=== PATIENT | female | born 1985 | race Caucasian/White ===

== ENCOUNTER → 2019-09-05 11:03 | Outpatient (CLI) | payer OTHER, SELFPAY ==
--- NOTE | ~2019-09-05 | XR_ITS ---
EXAMINATION: XR foot LT 2V EXAM DATE: 09/05/2019 11:27 INDICATION: No known recent injury provided at this time. Pain of the left foot. TECHNIQUE: Frontal and lateral projections of the left foot.. There is no prior study for compariso n. Correlation was made with contralateral foot same date. FINDINGS: There are no bony erosions identified. No periosteal reaction or band of sclerosis to sugg est subacute stress fracture. There are no acute left foot fractures or dislocations identified. The re is no subcutaneous gas. The soft tissue is unremarkable. There are no radiopaque foreign bodies . IMPRESSION: 1. Unremarkable XR foot LT 2V exam. Reviewed, dictated and finalized at location A. DER MACHINE KNIFE SETTER
--- NOTE | ~2019-09-05 | XR_ITS ---
EXAMINATION: XR foot RT 2V EXAM DATE: 09/05/2019 11:26 INDICATION: No known recent injury provided at this time. Pain of the right foot. TECHNIQUE: Frontal and lateral projections of the right foot. Correlation is made to contralateral f oot same date. FINDINGS: There is minimal right first metatarsophalangeal joint primary osteoarthritis. There are no acute fractures or dislocations identified. There is no subcutaneous gas. The soft tissue is unrem arkable. There are no radiopaque foreign bodies. There are no bony erosions identified. No periost eal reaction or band of sclerosis to suggest subacute stress fracture. IMPRESSION: Minimal right first MTP osteoarthritis. Reviewed, dictated and finalized at location A. OR COMPLIANCE ANALYST
--- NOTE | ~2019-09-05 | XR_ITS ---
EXAMINATION: XR hand RT 2V EXAM DATE: 09/05/2019 11:26 INDICATION: No known recent injury provided at this time. Pain of the right hand. Polyarthralgia. TECHNIQUE: Frontal and lateral projections of the right hand. Correlation is made to contralateral h and same date. FINDINGS: There are no bony erosions identified. There are no acute fractures or dislocations identi fied. There is no subcutaneous gas. The soft tissue is unremarkable. There are no radiopaque fore ign bodies. There is no more than minimal polyarticular interphalangeal osteoarthritis primary osteo arthritis. IMPRESSION: Minimal right hand interphalangeal osteoarthritis. Reviewed, dictated and finalized at location A. [employer] SERVICES SALES REPRESENTATIVE
--- NOTE | ~2019-09-05 | XR_ITS ---
EXAMINATION: XR hand LT 2V EXAM DATE: 09/05/2019 11:27 INDICATION: No known recent injury provided at this time. Pain of the left hand. Polyarthralgia. TECHNIQUE: Frontal and lateral projections of the left hand. Correlation is made to contralateral almendarez nd same date. FINDINGS: There are no bony erosions identified. There are no acute left hand fractures or dislocati ons identified. There is no subcutaneous gas. The soft tissue is unremarkable. There are no radio paque foreign bodies. There is no more than minimal polyarticular interphalangeal primary osteoarthr itis. IMPRESSION: Minimal left hand interphalangeal osteoarthritis. Reviewed, dictated and finalized at location A. RUCTOR CREELER
== END ==
PROVIDERS: Visit Provider Physician Assistant
DX: M25.50 Pain in unspecified joint (principal)
CPT/HCPCS: 73120; 73620

== ENCOUNTER → 2019-09-25 07:51 | Outpatient (CLI) | payer OTHER, SELFPAY ==
--- NOTE | ~2019-09-25 | XR_ITS ---
EXAMINATION: XR chest 2V DATE: 09/25/2019 08:06 INDICATION: Tuberculosis screening. Smoker. TECHNIQUE: Frontal and lateral views of the chest were obtained. COMPARISON: Chest 2 views 06/23/2008 FINDINGS: The chest demonstrates clear lungs without pneumonia, pleural effusion, or pneumothorax. Th e heart size is normal. IMPRESSION: 1. No acute cardiopulmonary disease. Reviewed, dictated and finalized at location A. WASHER BUSSER
== END ==
PROVIDERS: PCP Physician Assistant; Visit Provider Physician Assistant
DX: Z11.1 Encounter for screening for respiratory tuberculosis (principal)
CPT/HCPCS: 71046

== ENCOUNTER 2019-11-04 09:41 | Outpatient (CLI) | payer OTHER, SELFPAY ==
--- NOTE | 2019-11-04 10:30 | NEURO_ITS ---
Patient Number: [id number] Impression: # Complains of numbness of hands and feet. History of psoriasis arthritis. # Normal motor and sensory nerve conduction study. # Normal nerve conduction study. # Symptoms could be related to small fiber neuropathy Nerve Conduction Studies Anti Sensory Summary Table Stim Site NR Peak (ms) P-T Amp (?V) Site1 Site2 Delta-P (ms) Dist (cm) Eric (m/s) Left Median Anti Sensory (2-3nd Digit) Wrist 2.6 98.1 Wrist 2-3nd Digit 2.6 14.0 54 Wrist 2.6 87.0 Wrist 2-3nd Digit 2.6 14.0 54 Right Median Anti Sensory (2-3nd Digit) Wrist 2.5 80.7 Wrist 2-3nd Digit 2.5 14.0 56 Wrist 2.5 83.5 Wrist 2-3nd Digit 2.5 14.0 56 Left Radial Anti Sensory (Base 1st Digit) Wrist 1.9 35.1 Wrist Base 1st Digit 1.9 0.0 Right Radial Anti Sensory (Base 1st Digit) Wrist 2.1 31.5 Wrist Base 1st Digit 2.1 0.0 Left Sup Fibular Anti Sensory (Ant Lat Mall) 14 cm 3.3 31.5 14 cm Ant Lat Mall 3.3 16.0 48 Right Sup Fibular Anti Sensory (Ant Lat Mall) 14 cm 3.2 40.7 14 cm Ant Lat Mall 3.2 16.0 50 Left Sural Anti Sensory (Lat Mall) Calf 3.5 4.2 Calf Lat Mall 3.5 16.0 46 Right Sural Anti Sensory (Lat Mall) Calf 3.6 9.7 Calf Lat Mall 3.6 16.0 44 Left Ulnar Anti Sensory (5th Digit) Wrist 2.1 77.8 Wrist 5th Digit 2.1 14.0 67 Right Ulnar Anti Sensory (5th Digit) Wrist 2.0 72.7 Wrist 5th Digit 2.0 14.0 70 Motor Summary Table Stim Site NR Onset (ms) O-P Amp (mV) Site1 Site2 Delta-0 (ms) Dist (cm) Eric (m/s) Left Median Motor (Abd Poll Brev) Wrist 2.7 5.1 Elbow Wrist 4.3 26.0 60 Elbow 7.0 3.8 Right Median Motor (Abd Poll Brev) Wrist 2.3 11.5 Elbow Wrist 4.2 24.0 57 Elbow 6.5 4.3 Left Peroneal Motor (Vastus Med) Ankle 4.1 1.5 Popit Ankle 7.3 38.0 52 Popit 11.4 1.8 Right Peroneal Motor (Vastus Med) Ankle 3.9 2.5 Popit Ankle 5.9 35.0 59 Popit 9.8 1.9 Left Tibial Motor (Abd Gomes Brev) Ankle 3.8 11.3 Knee Ankle 6.4 40.0 63 Knee 10.2 9.4 Right Tibial Motor (Abd Goems Brev) Ankle 4.3 11.7 Knee Ankle 6.5 39.0 60 Knee 10.8 10.1 Left Ulnar Motor (Abd Dig Minimi) Wrist 2.3 6.6 A Elbow Wrist 4.4 28.0 64 A Elbow 6.7 5.1 Right Ulnar Motor (Abd Dig Minimi) Wrist 2.3 7.2 A Elbow Wrist 4.2 26.0 62 A Elbow 6.5 5.4 F Wave Studies NR F-Lat (ms) L-R F-Lat (ms) Left Median (Mrkrs) (Abd Poll Brev) 23.80 0.70 Right Median (Mrkrs) (Abd Poll Brev) 24.50 0.70 Left Peroneal (Mrkrs) (EDB) 43.74 0.94 Right Peroneal (Mrkrs) (EDB) 42.81 0.94 Left Tibial (Mrkrs) (Abd Hallucis) 42.03 1.88 Right Tibial (Mrkrs) (Abd Hallucis) 43.91 1.88 Left Ulnar (Mrkrs) (Abd Dig Min) 24.14 0.58 Right Ulnar (Mrkrs) (Abd Dig Min) 23.57 0.58 EMG Side Muscle Nerve Root Ins Act Fibs Amp Dur Recrt Comment Right 1stDorInt Ulnar C8-T1 Nml Nml Nml Nml Nml Right Ext Indicis Radial (Post Int) C7-8 Nml Nml Nml Nml Nml Right Ext Digitorum Radial (Post Int) C7-8 Nml Nml Nml Nml Nml Right BrachioRad Radial C5-6 Nml Nml Nml Nml Nml Right PronatorTeres Median C6-7 Nml Nml Nml Nml Nml Right Abd Poll Brev Median C8-T1 Nml Nml Nml Nml Nml Right AntTibialis Dp Br Fibular L4
== END 2019-11-04 09:42 | disposition home or self-care (01) ==
PROVIDERS: PCP Family Medicine; Visit Provider Family Medicine
DX: G62.9 Polyneuropathy, unspecified (principal)
CPT/HCPCS: 95886; 95913

== ENCOUNTER 2020-07-12 19:35 | Emergency (ER) | payer OTHER, SELFPAY ==
[2020-07-12 19:40] VITALS: BP 133/91; PULSE 87; RESP 17; O2SAT 100
[2020-07-12 19:48] VITALS: TEMP 37.6
[2020-07-12 20:42] VITALS: BP 116/81; PULSE 74; RESP 16; O2SAT 100
[2020-07-12 20:45] LABS: Basophils Absolute Auto 0.1 K/mm3 (0.0-0.1); Basophils Percent Auto 0.3 % (0.2-1.2); Eosinophils Absolute Auto 0.1 K/mm3 (0-0.3); Eosinophils Percent Auto 0.6 % (0-4.4); Hematocrit 39.7 % (37.0-47.0); Hemoglobin 13.5 g/dL (12.0-15.0); Immature Granulocyte Absolute 0.04 K/mm3 (0.00-0.031); Immature Granulocyte Percent A 0.3 % (0-0.5); Lymphocytes Absolute Auto 3.77 K/mm3 (0.9-3.2); Lymphocytes Percent Auto 25.8 % (18.3-44.2); Mean Corpuscular Hemoglobin 31.6 pg (26-34); Mean Platelet Volume 10.6 fl (7.4-10.4); Monocytes Absolute Auto 0.8 K/mm3 (0.1-0.6); Monocytes Percent Auto 5.2 % (2.6-8.5); Neutrophils Absolute Auto 9.9 K/mm3 (1.3-6.7); Neutrophils Percent Auto 67.8 % (45.5-73.1); Platelet Count Result 289 k/mm3 (150-375); Red Blood Count 4.27 M/mm3 (4.2-5.4); Red Cell Distribution Width 13.1 % (11.5-14.5); White Blood Count 14.6 K/mm3 (4.5-10.0)
[2020-07-12] MEDS: SODIUM CHLORIDE 0.9% IV 1,000 ML 999 ML IV CONT ×2 (20:52→22:06)
[2020-07-12 21:00] VITALS: BP 106/74; PULSE 80; RESP 16; O2SAT 99
[2020-07-12 21:00] LABS: Anion Gap 6 mmol/L (8-16); Blood Urea Nitrogen 17 mg/dL (7-17); CRP 0.7 mg/dL (<1.0); Calcium 9.3 mg/dL (8.4-10.2); Carbon Dioxide 26 mmol/L (22-30); Chloride 105 mmol/L (98-107); Estimated Glomerular Filt Rate > 60; Glucose 104 mg/dL (65-105); Potassium 4.1 mmol/L (3.4-5.0); Sodium 137 mmol/L (137-145)
[2020-07-12 22:00] VITALS: BP 111/67; PULSE 78; RESP 16; O2SAT 98
[2020-07-12] MEDS: diazePAM INJ (*CRX) 10 MG/2 ML SYRINGE 5 MG IV PUSH (22:03)
[2020-07-12] MEDS: KETOROLAC 30 MG/ML VIAL (*BKC) IV PUSH (22:03)
[2020-07-12 22:18] LABS: Add Urine Microscopic? NO; Appearance Urine Clear (Clear); Bacteria Urine Trace /hpf; Bilirubin Urine Negative (Negative); Blood Urine Negative (Negative); Color Urine Yellow (Yellow); Glucose Urine UA Negative (Negative); Ketones Urine Negative (Negative); Leukocyte Esterase Ur Negative LEU/UL (Negative); Mucus Urine Few /lpf; Nitrate Urine Negative (Negative); Protein Urine Negative (Negative); RBC Urine 0-2 /hpf (0-2); Specific Grav Ur 1.015 (1.001-1.035); Squamous Epithelial Cell Urine Few /hpf (Few); Urobilinogen Urine Negative mg/dL (<2.0); WBC Urine 0-3 /hpf
--- NOTE | 2020-07-12 22:21 | ED.HA ---
HPI - Headache General Chief Complaint: Headache Stated Complaint: meningitis symptoms (had 3x) Time Seen by Provider: 07/12/20 20:32 History of Present Illness HPI Narrative: Patient is a 35-year-old female who presents ER with a headache. Symptoms began 3 days ago. Patient woke up from sleep feeling like she had tweaked a muscle in her back. Patient's reports that she was reporting some sciatic-like symptoms but patient is denying leg pain or numbness or tingling in her legs. Patient reports backaches increased the next day and was starting to have some neck discomfort as well. Today she started having headaches. She reports that it is a dull 3/10 headache at this time. She takes Tylenol and ibuprofen as needed for headaches. She reports occasionally if she moves really fast she will get a short burst of headache. She is having no numbness or tingling or dizziness. She is without change in vision. She has an elevated temperature here but denies fevers at home. Her recently tested positive for Covid and just finished his quarantine. She has no runny nose/sore throat/productive cough. Patient reports she has history of viral meningitis. Patient has no history of IV drug abuse. Denies any recent skin infections or dental infections. She has no new rashes. No traumatic injury to the back. Related Data Home Medications Medication Instructions Recorded Confirmed adalimumab [Humira] 0 SUBCUT .COMPLEX 07/12/20 07/12/20 sertraline mg 07/12/20 07/12/20 Allergies Allergy/AdvReac Type Severity Reaction Status Date / Time No Known Allergies Allergy Unknown Verified 07/12/20 19:42 Review of Systems Review of Systems: All systems reviewed & are unremarkable except as noted in HPI and below Constitutional: Constitutional: Denies chills, Reports fatigue, Denies fever(s) and Reports weakness Eyes: Eyes: Denies change in vision and Denies photophobia ENT: Denies nasal congestion and Denies sore throat Cardiovascular: Cardiovascular: Denies chest pain and Denies radiating jaw, neck or arm pain Respiratory: Respiratory: Denies cough and Denies dyspnea Gastrointestinal: Gastrointestinal: Denies abdominal pain, Denies nausea and Denies vomiting Genitourinary: Genitourinary: Denies nocturia and Denies dysuria Musculoskeletal: Musculoskeletal: Reports back pain, Denies myalgias and Denies muscle cramps Neurologic: Denies confusion, Denies dizziness, Denies syncope, Reports headache(s), Denies focal weakness and Denies numbness PMFSH Past Medical History Medical History (Updated 07/12/20 @ 23:45 by Hakeem Fonseca MD) History of meningitis Psoriatic arthritis Surgical History Surgical History (Updated 07/12/20 @ 23:39 by Hakeem Fonseca MD) No pertinent past surgical history Social History Social History Alcohol intake: never Gender identity (if verbalized by the patient): Female Exam Narrative: Exam Narrative: GENERAL: Well-appearing, well-nourished, and in no acute distress. HEAD: Normocephalic, atraumatic. EYES: PERRL and EOMI. NECK: No reproducible midline or paraspinal muscular tenderness on exam. Patient can rotate her head to the left and right without any issue and can also look upwards. When she looks down bring her chin towards her chest she reports stiffness but she was not having shooting pains down her back or neck. CHEST: Clear to auscultation. No respiratory distress. HEART: Regular rate and rhythm. Normal peripheral pulses. ABDOMEN: Soft, nontender, nondistended. Back: No midline tenderness of the thoracic or lumbar spine. There is moderate reproducible paraspinal muscular tenderness lateral to the L2 region of the low back on the right side. EXTREMITIES: Normal range of motion. No edema. SKIN: Warm, dry, no rash. NEURO: No focal deficits. Alert and oriented x3. Course Course Emergency Course: Patient improving with Toradol and Valium as well as IV fluid. Sh
[2020-07-12 23:00] VITALS: BP 102/69; PULSE 72; RESP 16; O2SAT 98
[2020-07-13 00:07] VITALS: BP 101/69; PULSE 68; RESP 17; TEMP 37.2; O2SAT 98
[2020-07-13 22:42] LABS: SARS-CoV-2 RNA PCR Negative
== END 2020-07-13 00:19 | disposition home or self-care (01) ==
PROVIDERS: Emergency Medicine Emergency Medical Services; Emergency Provider Emergency Medicine; PCP Family Medicine
DX: R51.9 Headache, unspecified (principal); M54.5 Low back pain; L40.50 Arthropathic psoriasis, unspecified; Z20.828 Contact with and (suspected) exposure to other viral communicable diseases
CPT/HCPCS: 36415; 80048; 81003; 85025; 86140; 87635; 87804; 96361; 96365; 96375; 99284; C9803; J0131; J1885; J3360; J7030; U0003

== ENCOUNTER 2024-10-22 09:21 | Outpatient (CLI) | payer OTHER, SELFPAY ==
--- NOTE | ~2024-10-22 | MM_ITS ---
EXAMINATION: MM screening veronica BI w joe HISTORY: Baseline. Family history of breast cancer. TECHNIQUE: Craniocaudal and mediolateral oblique 3-D tomosynthesis images were obtained and synthetic 2-D images were generated. CAD analysis was submitted and interpreted. COMPARISON: None BREAST PARENCHYMAL COMPOSITION: The breasts are heterogeneously dense, which may obscure small masses . FINDINGS: Punctate calcifications are detected diffusely within the bilateral breast tissue, morpholo gically benign in appearance. Mostly well-circumscribed asymmetry within the lower slightly inner right breast for which spot compr ession followed by a focused ultrasound is recommended. Additional indeterminate asymmetry within the upper outer left breast, possibly a summation artifact for which spot compression followed by a possible ultrasound is recommended. IMPRESSION: Mostly well-circumscribed asymmetry within the lower slightly inner right breast for which spot compr ession followed by a focused ultrasound is recommended. Additional indeterminate asymmetry within the upper outer left breast, possibly a summation artifact for which spot compression followed by a possible ultrasound is recommended. BI-RADS Category 0: Incomplete: Needs additional imaging evaluation. Reviewed, dictated and finalized at location A. IMPRESSION: Mostly well-circumscribed asymmetry within the lower slightly inner right breas t for which spot compression followed by a focused ultrasound is recommended. Additional indeterminate asymmetry within the upper outer left breast, possibly a summation artifact for which spot compression followed by a possible ultraso und is recommended. BI-RADS Category 0: Incomplete: Needs additional imaging evaluation.
--- OUTSIDE RECORDS SUMMARY | 2024-10-22 10:21 | XMS_ITS | Data Portability ---
Author Organization [facility] [employer], Main Office Address [address] [place] [address] Assessment No assessment recorded. Plan of Treatment Reminders Order Date Submit Date Provider Last Modified By Organization Details Last Modified Time Details Appointments Follow Up 30 2024 09:30A Ignacio Michael NP Not available Not available Not available Lab lipid panel, serum 2024 025 [facility], [address] , [place], [address], 10/13/2024 08:44:57 CBC w/ auto diff 2024 025 [facility] [employer] [facility], [address], [place], [address], 10/13/2024 08:44:57 CMP, serum or plasma 2024 025 [facility], [address], [place], [address], 10/13/2024 08:44:57 HbA1c (hemoglob in A1c), blood 2024 025 [facility], [address], [place], [address], 10/13/2024 08:44:57 TSH + free T4, serum 2024 025 [facility], [address], [place], [address], 10/13/2024 08:44:56 lipid panel, serum [email or web address] (Lab), [address] [place], [address], 04/17/2024 08:20:40 vitamin D, 1,25-dihy droxy, serum [address] (Lab), [address] [place], [address], 04/17/2024 08:20:40 CBC w/ auto diff [address] (Lab), [address] [place], [address], 04/17/2024 08:20:40 CMP, serum or plasma [address] (Lab), [address] [place], [address], 04/17/2024 08:20:40 glycohemo globin, total, blood [address] (Lab), [address] [place], [address], 04/17/2024 08:20:41 TSH, serum or plasma [address] (Lab), [address] [place], [address], 04/17/2024 08:20:[address] referral - Please call patient to schedule an appointme nt. Thank you. 2023 024 [email or web address] [facility], [address] [place] [address] [address], [place], [address], 07/07/2024 12:31:14 Procedures None recorded. Surgeries None recorded. Imaging MAMMO, screening , digital, bilateral - Please call pt to schedule [email or web address] [place] [address] - [facility], [address], [place] [address], [place], [address], 08/06/2024 14:02:42 Medication Orders Mounjaro 2.5 mg/0.5 mL subcutane ous pen injector 2024 025 [id number], [address], [place], [address], 10/06/2024 09:58:38 Adderall XR 10 mg capsule,e xtended release 2024 025 [id number], [address], [place], [address], 10/06/2024 09:58:41 Zithromax Z-Vivek 250 mg tablet 2023 024 [id number], [address], [place], [address], 10/06/2024 09:31:27 prednison e 20 mg tablet 2023 024 [id number], [address], [place], [address], 10/06/2024 09:32:11 Adderall XR 10 mg capsule,e xtended release 2023 024 [id number], [address], [place], [address], 07/07/2024 09:48:19 sertralin e 100 mg tablet [address] [facility] #[id number], [address], [place], [place], [id number], 04/07/2024 10:29:52 liothyron ine 25 mcg tablet [address] [facility] #[id number], [address], [place], [place], [id number], 04/07/2024 10:29:54 Adderall XR 10 mg capsule,e xtended release [address] [facility] #[id number], [address], [place], [place], [id number], 04/07/2024 11:12:21 Patient TargetsNo targets recorded. Patient InstructionsNo instructions recorded. Reason for Referral Neurologist Referral for Mehul conti Please call patient to schedule an appointment. Thank you. Referring Physician: Mamta Michael, [facility], Encounter Date: 04/07/2024 Problems Name Problem SNOMED Code Status Onset Date Resolution Date Notes Provider Name and Address Organization Details Recorded Time Insomnia 053600939 Active Not Available [facility] 3 14:47:53 Toothache 54323737 Active Not Available [facility] 3 14:47:53 Multiple joint pain 35696438 Active Not Available [facility] 3 14:47:53 Anxiety 12021145 Active 2018 Not Available [facility] 3 14:47:53 Acute upper respiratory infection 41359594 Active Not Available [facility] 3 14:47:54 Meningitis 9251003 Active 2018 x 3 Not Available [facility] 3 14:47:54 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 Not Available [facility] 3 14:47:54 Smoker 99387811 Active Not Available [facility] 3 14:47:54 Headache 94548232 Active 2023 RENEE Meyer [address], [facility] [address], [place], [address] , [facility] 4 10:18:01 Hypothyroidis m 54683018 Active 2023 RENEE Meyer [address], [facility] [address], [place], [address] , [facility] 4 10:22:19 Attention deficit hyperactivity disorder 651499796 Active 2023 RENEE Meyer [address], [facility] [address], [place], [address] , [facility] 4 10:26:52 Upper respiratory infection 59691261 Active 2023 RENEE Meyer [address], [facility] [address], [place], [address] , [facility] 4 11:27:22 Problem Notes None recorded. Medical Equipment None Reported. Allergies No known drug allergies Medications Name Sig Start Date Stop Date Status Note LastModified by Organization Details LastModified Time amoxicillin 500 mg capsule TAKE 2 NOW, THEN TAKE 1 3 TIMES A DAY UNTIL FINISHED 04/07 completed Not Available Not Available Not Available azithromyci n 250 mg tablet Take 2 TABLET EVERY DAY by oral route for 1 day. then 1 tab a day for 4 days 10/06 completed Not Available Not Available Not Available benzonatate 200 mg capsule TK ONE C PO TID PRN active Not Available Not Available No t Available liothyronin e 25 mcg tablet Take 2 tablets every day by oral route. active Not Available Not Available No t Available metronidazo le 0.75 % (37.5 mg/5 gram) vaginal gel active Not Available Not Available Not Available prednisone 20 mg tablet Take 2 tablets every day by oral route for 5 days. 10/06 completed Not Available Not Available Not Available dextroamphe tamine-amph etamine 10 mg tablet TAKE 1 TABLET BY MOUTH TWICE A DAY 10/06 completed Not Available Not Available Not Available sertraline 100 mg tablet TAKE 1 TABLET BY MOUTH EVERY DAY active Not Available Not Available No t Available penicillin V potassium 500 mg tablet active Not Available Not Available Not Available Tamiflu 75 mg capsule Take one tab po daily x 10 days 04/07 completed Not Available Not Available Not Available amoxicillin 500 mg tablet Take 1 tablet 3 times a day by oral route for 10 days. active Not Available Not Available No t Available amoxicillin 875 mg tablet TK 1 T PO BID TAT 06/12 completed Not Available Not Available Not Available buspirone 10 mg tablet Take 1 tablet twice a day by oral route as needed. 04/07 completed Not Available Not Available Not Available indomethaci n 50 mg capsule TAKE 1 CAP BY MOUTH EVERY 8 HOURS NEEDED FOR PAIN WITH FOOD. STOP IF ABDOMINAL PAIN. 10/06 completed Not Available Not Available Not Available lidocaine HCl 2 % mucosal solution TAKE 5 ML APPLIED TOPICALLY 4 TIMES A DAY (BEFORE MEALS AND AT BEDTIME) USE DIRECTED 04/07 completed Not Available Not Available Not Available dextroamphe tamine-amph etamine ER 10 mg 24hr capsule,ext end release TAKE 1 CAPSULE BY MOUTH EVERY DAY active Not Available Not Available No t Available montelukast 10 mg tablet TAKE 1 TABLET BY MOUTH EVERY EVENING 04/07 completed Not Available Not Available Not Available hydroxyzine HCl 25 mg tablet Take 1 tablet 3 times a day by oral route. active Not Available Not Available No t Available methylpredn isolone 4 mg tablets in a dose pack TAKE 6 TABLETS ON DAY 1 DIRECTED ON PACKAGE AND DECREASE BY 1 TAB EACH DAY FOR A TOTAL OF 6 DAYS 04/07 completed Not Available Not Available Not Available fluticasone propionate 50 mcg/actuati on nasal spray,suspe nsion SPRAY 1 SPRAY INTO EACH NOSTRIL EVERY DAY 04/07 completed Not Available Not Available Not Available sertraline 50 mg tablet Take 1 tablet every day by oral route. active Not Available Not Available No t Available Ventolin HFA 90 mcg/actuati on aerosol inhaler active Not Available Not Available Not Available intrauterin e device (IUD) 2018 active Not Available Not Available Not Avai lable Humira 04/07 completed Not Available Not Available Not Available Xofluza 40 mg tablet 2 po x 1 active Not Available Not Available N ot Available amphetamine ER 15 mg tablet, immediate and extended release 24 hour active Not Available Not Available Not Available Mounjaro 2.5 mg/0.5 mL subcutaneou s pen injector Inject 2.5 mg every week by subcutane ous route. 2024 active Not Available Not Available Not Avai lable Vitals Date Recorded Body height Body mass index (BMI) Body weight Body temperature Heart rate Oxygen saturation Oxygen saturation in Arterial blood by Pulse oximetry Pain severity - 0-10 verbal numeric rating [Score] - Reported Systolic blood pressure Diastolic blood pressure Provider Name and Address Organization Details Last Updated DateTime 4 154.94 cm 31.7 kg/m2 78809.5 2 g 98.6 [degF] 76 /min 98 % 98 % 4 118 mm[Hg] 83 mm[Hg] Krystina Fortune MA [facility] [employer] [facility] 4 09:41:13 Date Recorded Body height Body mass index (BMI) Body weight Body temperature Heart rate Oxygen saturation Oxygen saturation in Arterial blood by Pulse oximetry Systolic blood pressure Diastolic blood pressure Provider Name and Address Organization Details Last Updated DateTime 4 154.94 cm 31.2 kg/m2 69419.7 4 g 98 [degF] 81 /min 98 % 98 % 130 mm[Hg] 80 mm[Hg] Hayden Ruffin RN [facility] [employer] [facility] 4 09:30:40 Date Recorded Body height Body mass index (BMI) Body weight Body temperature Heart rate Oxygen saturation Oxygen saturation in Arterial blood by Pulse oximetry Systolic blood pressure Diastolic blood pressure Provider Name and Address Organization Details Last Updated DateTime 4 154.94 cm 31.7 kg/m2 16286.5 2 g 98.3 [degF] 109 /min 98 % 98 % 134 mm[Hg] 80 mm[Hg] Hayden Ruffin RN [facility] [employer] [facility] 4 11:20:46 Date Recorded Body height Body mass index (BMI) Body weight Body temperature Heart rate Oxygen saturation Oxygen saturation in Arterial blood by Pulse oximetry Systolic blood pressure Diastolic blood pressure Provider Name and Address Organization Details Last Updated DateTime 5 154.94 cm 33.3 kg/m2 09818.2 6 g 98.3 [degF] 72 /min 98 % 98 % 122 mm[Hg] 86 mm[Hg] Sheron Douglas RN [facility] [employer] [facility] 5 09:30:53 Social History Question Answer Notes LastModified by Organizat ion Details LastModified Time Tobacco Smoking Status Former Smoker Sheron Douglas RN [facility], [facility] 10/06/2024 09:35:25 What Is Your Level Of Alcohol Consumption? Occasional Information not available 10/06/2024 In The 14 Days Before Symptom Onset, Have You Had Close Contact With A Laboratory-confi rmed COVID-19 While That Case Was Ill? No Information not available 10/06/2024 In The 14 Days Before Symptom Onset, Have You Had Close Contact With A Person Who Is Under Investigation For COVID-19 While That Person Was Ill? No Information not available 10/06/2024 What Type Of Diet Are You Following? REGULAR Information not available 10/06/2024 Do You Or Have You Ever Used E-cigarettes Or Vape? 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 Yes Information not available 10/06/2024 When Did You Quit Smoking? 1-5yearssincelastc igarette Information not available 10/06/2024 Are There Any Guns Present In Your Home? No Information not available 10/06/2024 Do You Use Insect Repellent Routinely? No Information not available 10/06/2024 [facility] 10/06/2024 Do You Have Any Pets? Yes Information not available 10/06/2024 Do You Use Your Seat Belt Or Car Seat Routinely? Yes Information not available 10/06/2024 Do You Have Smoke And Carbon Monoxide Detectors In Your Home? Yes Information not available 10/06/2024 At What Age Did You Start Smoking Tobacco? 19 Information not available 10/06/2024 Do You Or Have You Ever Used Smokeless Tobacco? Never Used Smokeless Tobacco Information not available 10/06/2024 Are There Any Smokers In Your House? No Information not available 10/06/2024 Do You Participate In Social Media? Yes Information not available 10/06/2024 Do You Feel Stressed (tense, Restless, Nervous, Or Anxious, Or Unable To Sleep At Night)? [id number] Information not available 10/06/2024 Do You Use Sunscreen Routinely? Yes Information not available 10/06/2024 How Many Years Have You Smoked Tobacco? 16 Information not available 10/06/2024 Have You Recently Traveled Abroad? No Information not available 10/06/2024 Do You Have Any Dietary Restrictions? No Information not available 10/06/2024 Do You Or Have You Ever Used Any Other Forms Of Tobacco Or Nicotine? Yes Information not available 10/06/2024 How Many Years Have You Used E-cigarettes Or Vape? 2 Information not available 10/06/2024 Sex: Unknown Functional Status None recorded. Mental Status None recorded. Family History Relationship Description Onset Age of this Age Resolved Age Notes LastModified by Organization Details LastModified Time Paternal Grandmother Type 2 diabetes mellitus [email or web address] Not available 2023 09:49:24 Paternal Uncle Type 2 diabetes mellitus [email or web address] Not available 2023 09:49:46 Paternal Uncle Malignant tumor of colon [email or web address] Not available 2023 09:54:55 Maternal Grandfather Type 2 diabetes mellitus [email or web address] Not available 2023 09:50:32 Maternal Grandfather Malignant tumor of breast great grand mother as well [email or web address] Not available 04/07/2024 09:53:40 Maternal Grandfather Malignant tumor of colon [email or web address] Not available 2023 09:54:34 Paternal Grandfather Type 2 diabetes mellitus [email or web address] Not available 2023 09:50:44 Paternal Grandfather Malignant tumor of colon [email or web address] Not available 2023 09:54:43 Maternal Grandmother Type 2 diabetes mellitus [email or web address] Not available 2023 09:51:11 Medical History No medical history recorded. Gynecological HistoryNo gynecological history recorded. Obstetrics History GPAL:G 0 P 0 0 0 0 Past Encounters Encounter ID Performer Location Encounter Start Date Encounter Closed Date Diagnosis/Indication Diagnosis SNOMED-CT Code Diagnosis ICD10 Code Diagnosis Note [id number] RENEE [facility] Christophe riley [address] [facility] [address] [place] [address] 04/07/2024 09:29:21 04/07/2024 10:35:13 Adult health examination 283503962 Z00.00 Z00.01 Discussed medication compliance and routine follow ups.Discus sed healthy diet and routine exercise.D iscussed annual eye and dental exams.Ayah ent sees [employer] for PAP.Will order mammogram due to family history of breast cancer.Rev iewed vaccine records and made recommenda tions. Anxiety 67684448 F41.9 Doing well on current medication s, will refill medication s as needed. Insomnia 081182815 G47.0 0 Patient reports 2-3 hours of sleep at a time.Unabl e to shut her mind off.Does not want to do sleep study at this time.Has tried Melatonin but did not like the way it made her feel. Headache 98684358 R51.9 Will refer to Neurology for further evaluation . Hypothyroidism 93683874 E03.9 Will check labs as listed below. Attention deficit hyperactivity disorder 454481654 F90.9 Will start medication as listed below.[place] follow up in 4 weeks, sooner if needed. Screening for malignant neoplasm of breast 130816933 Z12.39 family history of breast cancer in mid 30s. [id number] RENEE Meyer [facility] Primary Care [facility] [address] [place] [address] 07/07/2024 09:23:20 07/07/2024 09:46:47 Attention deficit hyperactivity disorder 298409971 F90.9 UDS UTDPatient to follow up in 3 months, sooner if needed. Headache 06483651 R51.9 resubmitte d referral for neurology due to insurance [id number] RENEE Meyer [facility] Primary Care [facility] [address] [place] [address] 07/16/2024 11:15:20 07/16/2024 11:32:18 Upper respiratory infection 99521302 J06.9 Will treat as listed below. Patient will follow up as needed. [id number] RENEE Meyer [facility] Primary Care [place] [address] [place] [address] 10/06/2024 09:21:53 10/06/2024 09:58:54 Attention deficit hyperactivity disorder 576710743 F90.9 [place] 09/09/24UD S UTDlast appt: 10/06/24ne xt appt: 3 months, sooner if needed Dietary ma dionisio surveillance 303753695 Z71.3 Hypothyroidism 13652602 E03.9 Will check labs as listed below. Screening for cardiovascular system disease 607331374 Z13.6 Diabetes m ellitus screening 323269865 Z13.1 Health Concerns Section Related Observation LastModified by Organization Detai ls LastModified Time None Recorded Concern Status LastModified by Organization Details LastModified Time None Recorded Advance Directives Directive None Recorded Payers Encounter Date Sequence Insurance Name Policy Number Policy Hickman Covered Member ID Hickman Member ID Guarantor Name 04/07/2024 1 [facility] [id number] Caroline Ho [id number] Caroline Junior 07/07/2024 1 [employer] [id number] Caroline Hernandez Vic [id number] Caroline Junior 07/16/2024 1 [employer] [id number] Caroline Hernandez Vic [id number] Caroline Junior 10/06/2024 1 [employer] [id number] Caroline Hernandez Vic [id number] Caroline Junior Notes Date Note Type Note Provider Name and Address Organization Details Recorded Time 04/07/2024 text/html Patient is a 39 year old female that presents to the office for annual wellness. Patient has several concerns to discuss today. Patient would like to see if insurance will pay for early breast cancer screening due to family history of breast cancer. Patient reports her grandmother was diagnosed with breast cancer in her mid 30s and at age 60 due to cancer. Patient also reports concerns of possible ADHD due to inability to focus, trouble sitting still, insomnia and her mind always going nonstop . Patient reports she was always diagnosed with anxiety with a touch of OCD however as she gets older she thinks it could be possible that she was misdiagnosed. Patient continues to take the Sertraline, reports it helps with prevention of panic attacks but still struggles with focusing and restful sleep. Patient also reports concerns with headache. Patient reports most recent headache was 2 weeks ago and she was in bed for 5 days due to pain and body aches. Patient reports the headache reminds her of when she had meningitis but without the sick symptoms. Patient reports after the headache started to improve she could feel it down her spine and into her hips. Patient reports Tylenol and Ibuprofen did not help with headache. Patient reports she did take a muscle relaxer which helped provide some relief, she also contacted Teledoc and was prescribed Indomethacin which was very helpful. Patient denies chest pain and shortness of breath, nausea vomiting and diarrhea. lab-orderedmammogr jh-udcommuNDO-trmk s updated sees GYNFlu-declinesCov id-first doseTdap-[place] RENEE Meyer [address], [facility], [place], [address], [employer] 04/07/2024 12:00:32 07/07/2024 text/html Patient is a 39 year old female that presents to the office for 3 month follow up. Patient reports she has not been taking her Adderall as directed due to forgetting to take the second dose. Patient was switch to Adderall 10mg BID due to supply issues of Adderall XR 10mg daily. Patient has not had her Mammogram completed due to [facility] no longer being in network. Patient denies any other concerns at this time. RENEE Meyer [address], [facility], [place], [address], [employer] 07/07/2024 09:49:35 07/16/2024 text/html Patient is a 39 year old female that presents to the office for sick visit. Patient has had productive cough with green sputum, shortness of breath, chest tightness, intermittent fevers, body aches and fatigue for 4 days. Patient denies nausea vomiting and diarrhea. Patient reports she has been taking OTC medications without relief of symptoms. Patient denies known sick contacts. RENEE Meyer [address], [facility], [place], [address], [employer] 07/16/2024 16:11:51 10/06/2024 text/html Patient is a 39 year old female that presents to the office for follow up. Patient reports things have been going . Patient reports last month she was unable to find the Adderall XR and does not always remember to take the second dose of the regular strength. Patient reports issues with unexplained weight gain. Would like to restart Mounjaro if covered by her insurance to aid in weight loss and it also helped with her arthritis flare ups. Patient is overdue for labs, will order. Mamta Michael, [facility] [address] [facility], [facility] [address], [place], [address], [facility] [employer] [facility] 10/06/2024 22:58:30 OBGyn Episode No OBEpisode recorded.
== END 2024-10-22 09:22 | disposition home or self-care (01) ==
LOC: ANHIMG 09:31
PROVIDERS: PCP Nurse Practitioner Family; Visit Provider Nurse Practitioner Family
DX: Z12.31 Encounter for screening mammogram for malignant neoplasm of breast (principal); R92.8 Other abnormal and inconclusive findings on diagnostic imaging of breast
CPT/HCPCS: 77063; 77067

== ENCOUNTER 2024-12-03 10:53 | Outpatient (CLI) | payer OTHER, SELFPAY ==
--- NOTE | ~2024-12-03 | MMUS_ITS ---
EXAMINATION: US breast BI complete, MM diagnostic veronica BI w joe HISTORY: Follow-up right breast mass and left breast asymmetry TECHNIQUE: Additional 3-D tomosynthesis images of the breasts were performed and synthetic 2-D images were generated. CAD analysis was submitted and interpreted. High resolution bilateral complete breas t ultrasound was performed. COMPARISON: 10/22/2024 BREAST PARENCHYMAL COMPOSITION: Not dense: There are scattered areas of fibroglandular density. FINDINGS: MAMMOGRAPHIC FINDINGS: There is no mammographic evidence for malignancy in the left breast. There is a low-density mass in t he lower central aspect of the right breast, posterior third. ULTRASOUND: Complete US of all 4 quadrants of the breast/s and retroareolar region was reviewed. Right breast: At 6:00, 2 cm from the nipple there is a slightly irregular shaped hypoechoic mass sandra uring 11 x 9 x 7 mm without internal vascularity or posterior features. There are multiple cysts of t he right breast, largest measuring 5 mm at 10:00, 3 cm from the nipple. Left breast: There are cysts of the left breast. No suspicious masses to suggest malignancy. IMPRESSION: 1. Slightly irregular shaped solid hypoechoic right breast mass at 6:00, 2 cm from the nipple measuri ng 11 mm. No evidence for malignancy in the left breast. Benign findings. 2. Ultrasound-guided right breast biopsy recommended. BI-RADS category 4, suspicious findings. Reviewed, dictated and finalized at location A. IMPRESSION: 1. Slightly irregular shaped solid hypoechoic right breast mass at 6:00, 2 cm f rom the nipple measuring 11 mm. No evidence for malignancy in the left breast. Benign findings. 2. Ultrasound-guided right breast biopsy recommended. BI-RADS category 4, suspicious findings.
== END 2024-12-03 10:54 | disposition home or self-care (01) ==
LOC: ANHIMG 10:54
PROVIDERS: PCP Nurse Practitioner Family; Visit Provider Nurse Practitioner Family
DX: R92.8 Other abnormal and inconclusive findings on diagnostic imaging of breast (principal)
CPT/HCPCS: 76641; 77062; 77066; G0279

== ENCOUNTER 2025-01-06 08:00 | Outpatient (CLI) | payer OTHER, SELFPAY ==
--- NOTE | ~2025-01-06 | MMUS_ITS ---
MM post biopsy diagnostic RT, US breast biopsy RT w image EXAMINATION: US GUIDED NEEDLE BIOPSY WITH V ACUUM ASSISTANCE INDICATION: Right breast mass. Ultrasound-guided core biopsy is requested to evaluate for malignancy . BREAST PARENCHYMAL COMPOSITION: Dense: The breasts are heterogeneously dense, which may obscure small masses TECHNIQUE AND FINDINGS: The risks and potential benefits of the procedure were discussed with the patient, and written inform ed consent was obtained. After sterile preparation of the right breast, 1% lidocaine was utilized fo r local anesthesia. 1% lidocaine with epinephrine was used for deep anesthesia. A 10G vacuum-assisted biopsy gun needle was advanced through to the outer edge of the region of inter est from a inferior approach utilizing sonographic guidance. A total of 4 tissue core samples were o btained through the lesion. An Inrad tissue marker clip was then placed at the biopsy site. Hemostas is was achieved. The patient tolerated procedure well and there was no evidence of immediate complication. The patien t was given verbal instructions partly is from the department. Right breast mammograms to document t issue marker clip placement. The tissue samples were submitted to surgical pathology for histologic a nalysis. IMPRESSION: 1. Successful ultrasound-guided vacuum-assisted biopsy of right breast mass with post procedure mamm ogram for marker placement. Please refer to pathology report for histologic analysis. Reviewed, dictated and finalized at location [] IMPRESSION: 1. Successful ultrasound-guided vacuum-assisted biopsy of right breast mass wi th post procedure mammogram for marker placement. Please refer to pathology rep ort for histologic analysis.
--- OUTSIDE RECORDS SUMMARY | 2025-01-06 08:08 | XMS_ITS | Data Portability ---
Author Organization [facility], Main Office Address [address] [place] [address] Assessment No assessment recorded. Plan of Treatment Reminders Order Date Submit Date Provider Last Modified By Organization Details Last Modified Time Details Appointments Follow Up 15 2024 09:30A Ignacio Michael NP Not available Not available Not available Lab lipid panel, serum 2024 025 [facility], [address] , [place], [address], 10/13/2024 08:44:57 CBC w/ auto diff 2024 025 [facility], [address], [place], [address], 10/13/2024 08:44:57 CMP, serum or plasma 2024 025 [facility], [address], [place], [address], 10/13/2024 08:44:57 HbA1c (hemoglob in A1c), blood 2024 025 [facility]al[facility], [address], [place], [address], 10/13/2024 08:44:57 TSH + free T4, serum 2024 025 [facility], [address], [place], [address], 10/13/2024 08:44:56 lipid panel, serum [email or web address] (Lab), [address] [place], [address], 04/17/2024 08:20:40 vitamin D, 1,25-dihy droxy, serum [address] (Lab), [address] [place], [address], 04/17/2024 08:20:40 CBC w/ auto diff [address] (Lab), [address] [place], [address], 04/17/2024 08:20:40 CMP, serum or plasma [address] (Lab), [address] [place], [address], 04/17/2024 08:20:40 glycohemo globin, total, blood [address] (Lab), [address] [place], [address], 04/17/2024 08:20:41 TSH, serum or plasma [address] (Lab), [address] [place], [address], 04/17/2024 08:20:[address] referral - Please call patient to schedule an appointme nt. Thank you. 2023 024 [email or web address] [facility], [address] [place] [address] [address], [place], [address], 07/07/2024 12:31:14 Procedures None recorded. Surgeries None recorded. Imaging MAMMO, screening , digital, bilateral - Please call pt to schedule [email or web address] [place] [address] - [facility], [address], [place] [address], [place], [address], 08/06/2024 14:02:42 Medication Orders Mounjaro 2.5 mg/0.5 mL subcutane ous pen injector 2024 025 [id number], [address], [place], [address], 10/06/2024 09:58:38 Adderall XR 10 mg capsule,e xtended release 2024 025 [id number], [address], [place], [address], 10/06/2024 09:58:41 Zithromax Z-Vivek 250 mg tablet 2023 024 [id number], [address], [place], [address], 10/06/2024 09:31:27 prednison e 20 mg tablet 2023 024 [id number], [address], [place], [address], 10/06/2024 09:32:11 Adderall XR 10 mg capsule,e xtended release 2023 024 [id number], [address], [place], [address], 07/07/2024 09:48:19 sertralin e 100 mg tablet 2023 024 [facility] #[id number], [address], [place], [place], [id number], 04/07/2024 10:29:52 liothyron ine 25 mcg tablet 2023 024 [facility] #[id number], [address], [place], [place], [id number], 04/07/2024 10:29:54 Adderall XR 10 mg capsule,e xtended release 2023 [facility] #[id number], [address], [place], [place], [id number], 04/07/2024 11:12:21 Patient TargetsNo targets recorded. Patient InstructionsNo instructions recorded. Reason for Referral Neurologist Referral for Mehul conti Please call patient to schedule an appointment. Thank you. Referring Physician: Mamta Michael, Family Medicine, Encounter Date: 04/07/2024 Results Created Date Observation Date Name Description Value Unit Range Abnormal Flag Note LastModifiedBy Organization Detail LastModifiedTime 10/23/1910/23/2024 LIPID PANEL (REFL ) cholesterol, total 223 mg/dL <200 high Not Available [facility] [address] [address] [place], [address], 10/23/2024 06:05:29 10/23/1910/23/2024 LIPID PANEL (REFL ) HDL cholesterol 73 mg/dL > or = 50 normal Not Available [facility] [employer] [address] [address] [place], [address], 10/23/2024 06:05:29 10/23/1910/23/2024 LIPID PANEL (REFL ) triglyceride s 63 mg/dL <150 normal Not Available [employer] [address] [address] [place], [address], 10/23/2024 06:05:29 10/23/1910/23/2024 LIPID PANEL (REFL ) LDL-choleste rol 135 mg/dL _(elvis c) high Refer ence range : <100 Stephanie able range <100 mg/dL for prima ry preve ntion ; <70 mg/dL for patie nts with CHD or diabe tic patie nts with > or = 2 CHD risk facto rs. LDL-C is now calcu lated using the Fabiola n-Hop kins calcu carlos n, which is a valid ated novel jdo arin marroquin accur acy than the Fried judy equat ion in the estim ation of LDL-C . Fabiola sky SS et al. JORGE. 2013; 310(1 9): 2061- 2068 (http ://ed ucati on.Qu estDi Zevan Limiteds. com/f aq/FA Q164) Not Available [address] [address] [place], [address], 10/23/2024 06:05:29 10/23/1910/23/2024 LIPID PANEL (REFL ) chol/HDLC ratio 3.1 (calc ) <5.0 normal Not Available [address] [address] [place], [address], 10/23/2024 06:05:29 10/23/1910/23/2024 LIPID PANEL (REFL ) non HDL cholesterol 150 mg/dL _(elvis c) <130 high For patie nts with diabe [place] plus 1 major ASCVD risk facto r, treat ing to a non-H DL-C goal of <100 mg/dL (LDL- C of <70 mg/dL ) is consi freddied a trini jenkins optio n. Not Available [address] [address] [place], [address], 10/23/2024 06:05:29 10/23/1910/23/2024 TSH+F REE T4 TSH 1.10 mIU/L normal Refer ence Range > or = 20 Years 0.40- 4.50 Pregn kojo Range s First trime ster 0.26- 2.66 Secon d trime ster 0.55- 2.73 Third trime ster 0.43- 2.91 Not Available [facility] [address] [address] [place], [address], 10/23/2024 06:05:30 10/23/1910/23/2024 TSH+F REE T4 T4, free 1.4 NG/dL 0.8-1. 8 normal Not Available [address], [address], 10/23/2024 06:05:30 10/23/19 25 10/23/2024 COMPR EHENS PATRICK METAB OLIC PANEL glucose 90 mg/dL 65-99 normal Fasti ng refer ence inter tia Not Available [address], [address], 10/23/2024 06:05:31 10/23/19 25 10/23/2024 COMPR EHENS PATRICK METAB OLIC PANEL urea nitrogen (BUN) 11 mg/dL 7-25 normal Not Available [address], [address], 10/23/2024 06:05:31 10/23/19 25 10/23/2024 COMPR EHENS PATRICK METAB OLIC PANEL creatinine 0.79 mg/dL 0.50-0 .97 normal Not Available [address], [address], 10/23/2024 06:05:31 10/23/19 25 10/23/2024 COMPR EHENS PATRICK METAB OLIC PANEL eGFR 99 mL/mi n/1.7 3m2 > or = 60 normal Not Available [address], [address], 10/23/2024 06:05:31 10/23/19 25 10/23/2024 COMPR EHENS PATRICK METAB OLIC PANEL BUN/creatini ne ratio SEE NOTE: (calc ) 6-22 Not Repor savanah: BUN and Creat inine are withi n refer ence range . Not Available [address], [address], 10/23/2024 06:05:31 10/23/19 25 10/23/2024 COMPR EHENS PATRICK METAB OLIC PANEL sodium 139 mmol/ L 135-14 6 normal Not Available [address], [address], 10/23/2024 06:05:31 10/23/1910/23/2024 COMPR EHENS PATRICK METAB OLIC PANEL potassium 4.6 mmol/ L 3.5-5. 3 normal Not Available [address], [address], 10/23/2024 06:05:31 10/23/1910/23/2024 COMPR EHENS PATRICK METAB OLIC PANEL chloride 103 mmol/ L 98-110 normal Not Available [address], [address], 10/23/2024 06:05:31 10/23/1910/23/2024 COMPR EHENS PATRICK METAB OLIC PANEL carbon dioxide 27 mmol/ L 20-32 normal Not Available [address], [address], 10/23/2024 06:05:31 10/23/1910/23/2024 COMPR EHENS PATRICK METAB OLIC PANEL calcium 9.4 mg/dL 8.6-10 .2 normal Not Available [address], [address], 10/23/2024 06:05:31 10/23/1910/23/2024 COMPR EHENS PATRICK METAB OLIC PANEL protein, total 7.2 g/dL 6.1-8. 1 normal Not Available [address], [address], 10/23/2024 06:05:31 10/23/19 25 10/23/2024 COMPR EHENS PATRICK METAB OLIC PANEL albumin 4.8 g/dL 3.6-5. 1 normal Not Available [address], [address], 10/23/2024 06:05:31 10/23/19 25 10/23/2024 COMPR EHENS PATRICK METAB OLIC PANEL globulin 2.4 g/dL_ (calc ) 1.9-3. 7 normal Not Available [address], [address], 10/23/2024 06:05:31 10/23/19 25 10/23/2024 COMPR EHENS PATRICK METAB OLIC PANEL albumin/glob ulin ratio 2.0 (calc ) 1.0-2. 5 normal Not Available [address], [address], 10/23/2024 06:05:31 10/23/19 25 10/23/2024 COMPR EHENS PATRICK METAB OLIC PANEL bilirubin, total 0.5 mg/dL 0.2-1. 2 normal Not Available [address], [address], 10/23/2024 06:05:31 10/23/19 25 10/23/2024 COMPR EHENS PATRICK METAB OLIC PANEL alkaline phosphatase 47 U/L 31-125 normal Not Available [address], [address], 10/23/2024 06:05:31 10/23/19 25 10/23/2024 COMPR EHENS PATRICK METAB OLIC PANEL AST 15 U/L 10-30 normal Not Available [address], [address], 10/23/2024 06:05:31 10/23/19 25 10/23/2024 COMPR EHENS PATRICK METAB OLIC PANEL ALT 11 U/L 6-29 normal Not Available [address], [address], 10/23/2024 06:05:31 10/23/19 25 10/23/2024 CBC (INCL UDES DIFF/ PLT) white blood cell count 7.1 thous and/u L 3.8-10 .8 normal Not Available [address], [address], 10/23/2024 06:05:32 10/23/19 25 10/23/2024 CBC (INCL UDES DIFF/ PLT) red blood cell count 4.58 margarita on/uL 3.80-5 .10 normal Not Available [address], [address], 10/23/2024 06:05:32 10/23/19 25 10/23/2024 CBC (INCL UDES DIFF/ PLT) hemoglobin 14.3 g/dL 11.7-1 5.5 normal Not Available [address], [address], 10/23/2024 06:05:32 10/23/19 25 10/23/2024 CBC (INCL UDES DIFF/ PLT) hematocrit 42.3 % 35.0-4 5.0 normal Not Available [address], [address], 10/23/2024 06:05:32 10/23/19 25 10/23/2024 CBC (INCL UDES DIFF/ PLT) MCV 92.4 fL 80.0-1 00.0 normal Not Available [address], [address], 10/23/2024 06:05:32 10/23/19 25 10/23/2024 CBC (INCL UDES DIFF/ PLT) MCH 31.2 pg 27.0-3 3.0 normal Not Available [address], [address], 10/23/2024 06:05:32 10/23/19 25 10/23/2024 CBC (INCL UDES DIFF/ PLT) MCHC 33.8 g/dL 32.0-3 6.0 normal For adult s, a sligh t decre ase in the calcu lated MCHC value (in the range of 30 to 32 g/dL) is most likel y not clini charlie haile t; bi er, it shoul d be inter prete d with cauti on in [place] with other red cell andreas eters and the patie nt's clini elvis condi tion. Not Available [facility] [address], [address], 10/23/2024 06:05:32 10/23/1910/23/2024 CBC (INCL UDES DIFF/ PLT) RDW 12.9 % 11.0-1 5.0 normal Not Available [facility] [address], [address], 10/23/2024 06:05:32 10/23/1910/23/2024 CBC (INCL UDES DIFF/ PLT) platelet count 340 thous and/u L 140-40 0 normal Not Available [facility] [address], [address], 10/23/2024 06:05:32 10/23/1910/23/2024 CBC (INCL UDES DIFF/ PLT) MPV 10.4 fL 7.5-12 .5 normal Not Available [address], [address], 10/23/2024 06:05:32 10/23/1910/23/2024 CBC (INCL UDES DIFF/ PLT) absolute neutrophils 3948 cells /uL 1500-7 800 normal Not Available [facility] [address], [address], 10/23/2024 06:05:32 10/23/19 25 10/23/2024 CBC (INCL UDES DIFF/ PLT) absolute lymphocytes 2428 cells /uL 850-39 00 normal Not Available [facility] [address], [address], 10/23/2024 06:05:32 10/23/1921 1010/23/2024 CBC (INCL UDES DIFF/ PLT) absolute monocytes 504 cells /uL 200-95 0 normal Not Available [address], [address], 10/23/2024 06:05:32 10/23/19 25 10/23/2024 CBC (INCL UDES DIFF/ PLT) absolute eosinophils 170 cells /uL 15-[address] [facility] [address], [address], 10/23/2024 06:05:32 10/23/19 25 10/23/2024 CBC (INCL UDES DIFF/ PLT) absolute basophils 50 cells /uL 0-200 normal Not Available [facility] [address], [address], 10/23/2024 06:05:32 10/23/1910/23/2024 CBC (INCL UDES DIFF/ PLT) neutrophils 55.6 % normal Not Available [address], [address], 10/23/2024 06:05:32 10/23/19 25 10/23/2024 CBC (INCL UDES DIFF/ PLT) lymphocytes 34.2 % normal Not Available [facility] [address], [address], 10/23/2024 06:05:32 10/23/19 25 10/23/2024 CBC (INCL UDES DIFF/ PLT) monocytes 7.1 % normal Not Available [facility] [address], [address], 10/23/2024 06:05:32 10/23/19 25 10/23/2024 CBC (INCL UDES DIFF/ PLT) eosinophils 2.4 % normal Not Available [facility] [address], [address], 10/23/2024 06:05:32 10/23/19 25 10/23/2024 CBC (INCL UDES DIFF/ PLT) basophils 0.7 % normal Not Available [facility] [address] [place], [address], 10/23/2024 06:05:32 10/23/19 25 10/23/2024 HEMOG LOBIN A1C hemoglobin A1C 5.2 %_of_ total _HGB <5.7 normal For the purpo se of ayanna mendez for the prese nce of diabe [place]: <5.7% Consi stent with the absen ce of diabe [place] 5.7-6 .4% Consi stent with incre ased risk for diabe [place] (pred iabet es) > or =6.5% Consi stent with diabe [place] This assay resul t is consi stent with a decre ased risk of diabe [place]. Curre ntly, no conse nsus exist s regar phi use of hemog lobin A1c for diagn osis of diabe [place] in child ahmet. Accor ding to Ameri can Diabe [place] Assoc iatio n (ADA) guide lines , hemog lobin A1c <7.0% repre sents optim al contr ol in non-p regna nt diabe tic patie nts. Diffe rent metri cs may apply to speci fic patie nt popul ation s. Stand ards of Medic al Care in Diabe [place](A DA). Not Available [facility] [address] , [place], [address], 10/23/2024 06:05:33 10/23/19 25 10/22/2024 MAMMO , ayanna mendez, digit al, bilat eral No observ ation record ed. [facility] [address], [place], [address], 10/23/2024 10:06:53 10/24/19 25 10/22/2024 MAMMO , ayanna connorsg, digit al, bilat eral No observ ation record ed. [facility] (Mammography) [address], [place], [address], 10/23/2024 10:06:54 12/04/19 25 12/03/2024 naomi [place]UST[place] bilat eral No observ ation record ed. [facility] [address], [place], [address], 12/04/2024 17:02:32 12/05/19 25 12/03/2024 naomi AUSTIN bilat eral No observ ation record ed. [facility] (Mammography) [address], [place], [address], 12/04/2024 17:02:57 Result Notes None recorded. Problems Name Problem SNOMED Code Status Onset Date Resolution Date Notes Provider Name and Address Organization Details Recorded Time Insomnia 936701637 Active Not Available [facility] 3 14:47:53 Toothache 83967496 Active Not Available [facility] 3 14:47:53 Pain of multiple joints 96811343 Active Not Available [facility] 3 14:47:53 Anxiety 94486243 Active 2018 Not Available [facility] 3 14:47:53 Acute upper respirator y infection 55727839 Active Not Available [facility] 3 14:47:54 Meningitis 2298594 Active 2018 x 3 Not Available [facility] 3 14:47:54 Peripheral spondyloar thritis 868414428 Active 2019 Not Available [facility] 3 14:47:54 Smoker 38552425 Active Not Available [facility] 3 14:47:54 Headache 35032104 Active 2023 RENEE Meyer [address], [address], [place], [address] , [employer] 4 10:18:01 Hypothyroi dism 30938205 Active 2023 RENEE Meyer [address], [address], [place], [address] , [employer] 4 10:22:19 Attention deficit hyperactiv ity disorder 970805195 Active 2023 RENEE Meyer [address], [place], [address] , [facility] [place] [employer] [facility] 4 10:26:52 Upper respirator y infection 79624154 Active 2023 RENEE Meyer [address], [place], [address] , [facility] [employer] [facility] [employer] [facility] 4 11:27:22 Mammograph y abnormal 270812542 Active 2024 RENEE Meyer [address], [address], [place], [address] , [facility] [employer] [facility] [employer] [facility] 5 09:48:59 [employer] [place] of breast abnormal 5992975517757 9104 Active 2024 RENEE Meyer [address], [place], [address] , [facility] [employer] [facility] [employer] [facility] 5 14:12:27 Problem Notes None recorded. Medical Equipment None [...] active Not Available Not Available Not Available diethylprop ion 25 mg tablet active Not Available Not Available [...] Not Available Not Available Not Available Mounjaro 5 mg/0.5 mL subcutaneou s pen injector Inject by subcutane ous route for 28 days. active Not Available Not Available No t Available [employer] 2.5 mg/0.5 mL subcutaneou s pen injector Inject 2.5 mg every week by subcutane ous route. 2024 active Not Available Not Available Not Avai lable Zepbound 5 mg/0.5 mL subcutaneou s pen injector Inject 0.5 mL every week by subcutane ous route. 2024 active Not Available Not Available Not Avai lable Vitals Date Recorded Body height Body mass index (BMI) Body weight Body temperature Heart rate Oxygen saturation Oxygen saturation in Arterial blood by Pulse oximetry Systolic blood pressure Diastolic blood pressure Provider Name and Address Organization Details Last Updated DateTime 5 154.94 cm 33.3 kg/m2 59713.2 6 g 98.3 [degF] 72 /min 98 % 98 % 122 mm[Hg] 86 mm[Hg] Sheron Douglas RN [facility] [employer] [facility] 5 09:30:53 Date Recorded Body height Body mass index (BMI) Body weight Body temperature Heart rate Oxygen saturation Oxygen saturation in Arterial blood by Pulse oximetry Systolic blood pressure Diastolic blood pressure Provider Name and Address Organization Details Last Updated DateTime 4 154.94 cm 31.7 kg/m2 60998.5 2 g 98.6 [degF] 76 /min 98 % 98 % 118 mm[Hg] 83 mm[Hg] Krystina Fortune MA [facility] [email or web address] [facility] 4 09:41:13 Date Recorded Body height Body mass index (BMI) Body weight Body temperature Heart rate Oxygen saturation Oxygen saturation in Arterial blood by Pulse oximetry Systolic blood pressure Diastolic blood pressure Provider Name and Address Organization Details Last Updated DateTime 4 154.94 cm 31.2 kg/m2 81432.7 4 g 98 [degF] 81 /min 98 % 98 % 130 mm[Hg] 80 mm[Hg] Hayden Ruffin RN [facility] [email or web address] [facility] 4 09:30:40 Date Recorded Body height Body mass index (BMI) Body weight Body temperature Heart rate Oxygen saturation Oxygen saturation in Arterial blood by Pulse oximetry Systolic blood pressure Diastolic blood pressure Provider Name and Address Organization Details Last Updated DateTime 4 154.94 cm 31.7 kg/m2 81619.5 2 g 98.3 [degF] 109 /min 98 % 98 % 134 mm[Hg] 80 mm[Hg] Hayden Ruffin RN [facility] [employer] 4 11:20:46 Social History Question Answer Notes LastModified by Organizat ion Details LastModified Time Tobacco Smoking Status Former Smoker Sheron Douglas RN [facility] [facility] 10/06/2024 09:35:25 In The 14 Days Before Symptom Onset, [...] You Following? REGULAR Information not available 10/06/2024 Have There Been Any Changes To Your Family Or Social Situation? Yes Information not available 10/06/2024 When Did You Quit Smoking? 1-5yearssincelastc igarette Information not available 10/06/2024 Are There Any Guns Present In Your Home? No Information not available 10/06/2024 Do You Use Insect Repellent Routinely? No Information not available 10/06/2024 Where Do You Live[facility] Information not available 10/06/2024 Do You Have Any Pets? Yes Information not available 10/06/2024 Do You Use Your Seat Belt Or Car Seat Routinely? Yes Information not available 10/06/2024 Do You Have Smoke And Carbon Monoxide Detectors In Your Home? Yes Information not available 10/06/2024 At What Age Did You Start Smoking Tobacco? 19 Information not available 10/06/2024 Are There Any [...] Dietary Restrictions? No Information not available 10/06/2024 How Many Years Have You Used E-cigarettes Or Vape? 2 Information not available 10/06/2024 Sex: Unknown Functional Status Question Answer Note LastModified by Organizat ion Details LastModified Time Do you or have you ever used any other forms of tobacco or nicotine? Yes Information not available 10/06/2024 What is your level of alcohol consumption? Occasional Information not available 10/06/2024 Do you or have you ever used smokeless tobacco? 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 Current user of electronic cigarettes Information not available 10/06/2024 Mental Status Question Answer Note LastModified by Organization D etails LastModified Time Do you feel stressed (tense, restless, nervous, or anxious, or unable to sleep at night)? [id number] Information not available 10/06/2024 Family History Relationship Description Onset Age of [...] SNOMED-CT Code Diagnosis ICD10 Code Diagnosis Note [id number] RENEE Meyer [facility] Primary Care [address] [place] [address] 04/07/2024 09:29:21 04/07/2024 10:35:13 Adult health examination 453624713 Z00.00 Z00.01 Discussed medication compliance and routine follow ups.Discus sed healthy diet and routine exercise.D iscussed annual eye and dental exams.Ayah ent sees [employer]PER[employer] for PAP.Will order mammogram due to family history of breast cancer.Rev iewed vaccine records and made recommenda tions. Anxiety 84471010 F41.9 Doing well on current medication s, will refill medication s as needed. Insomnia 184758142 G47.0 0 Patient reports 2-3 hours of sleep at a time.Unabl e to shut her mind off.Does not want to do sleep study at this time.Has tried Melatonin but did not like the way it made her feel. Headache 34835003 R51.9 Will refer to Neurology for further evaluation . Hypothyroidism 21401892 E03.9 Will check labs as listed below. Attention deficit hyperactivity disorder 739060529 F90.9 Will start medication as listed below.[place]. [place] ill follow up in 4 weeks, sooner if needed. Screening for malignant neoplasm of breast 113344810 Z12.39 family history of breast cancer in mid 30s. [id number] RENEE Meyer [facility] Primary Care [address] [facility] [place] [address] 07/07/2024 09:23:20 07/07/2024 09:46:47 Attention deficit hyperactivity disorder 906776440 F90.9 UDS UTDPatient to follow up in 3 months, sooner if needed. Headache 60285626 R51.9 resubmitte d referral for neurology due to insurance [id number] RENEE Meyer [facility] Primary Care [facility] [address] [facility] [address] [address] 07/16/2024 11:15:20 07/16/2024 11:32:18 Upper respiratory infection 90971965 J06.9 Will treat as listed below. Patient will follow up as needed. [id number] RENEE Meyer [facility] Primary Care [facility] [address] [facility] [address] [place] [address] 10/06/2024 09:21:53 10/06/2024 09:58:54 Attention deficit hyperactivity disorder 588744910 F90.9 [place] 09/09/24UD S UTDlast appt: 10/06/24ne xt appt: 3 months, sooner if needed Dietary ma nagement surveillance 392064049 Z71.3 Hypothyroidism 25468730 E03.9 Will check labs as listed below. Screening for cardiovascular system disease 776623891 Z13.6 Diabetes m ellitus screening 349456201 Z13.1 Health Concerns Section Related Observation LastModified by Organization Detai ls LastModified Time None Recorded Concern Status LastModified by Organization Details LastModified Time None Recorded Advance Directives Directive None Recorded Payers Encounter Date Sequence Insurance Name Policy Number Policy Hickman Covered Member ID Hickman Member ID Guarantor Name 04/07/2024 1 R [id number] Caroline Ho [id number] Caroline Junior 07/07/2024 1 R [id number] Caroline Ho [id number] Caroline Junior 07/16/2024 1 UMR [id number] Caroline Ho [id number] Caroline Junior 10/06/2024 1 R [id number] Caroline Ho [id number] Caroline Junior Notes Date Note Type Note [...] still, insomnia and her mind always going nonstop. Patient reports she was always diagnosed with [...] of breath, nausea vomiting and diarrhea. lab-orderedmammogr td-ugvumriSTN-qzve s updated sees GYNFlu-declinesCov id-first doseTdap-[place] RENEE Meyer [address], [place] [address], [place], [address], [facility] [place] gis.to [facility] 04/07/2024 12:00:32 07/07/2024 text/html Patient is a [...] not had her Mammogram completed due to [place] no longer being in network. Patient denies any other concerns at this time. RENEE Meyer [address], [address], [place], [address], [employer] 07/07/2024 09:49:35 07/16/2024 text/html Patient is a [...] Patient denies known sick contacts. RENEE Meyer [address], [address], [place], [address], [employer] 07/16/2024 16:11:51 10/06/2024 text/html Patient is a 39 year old female that presents to the office for follow up. Patient reports things have been going. Patient reports last month she was unable [...] Patient is overdue for labs, will order. RENEE Meyer [address], [address], [place], [address], [employer] 10/06/2024 22:58:30 OBGyn Episode No OBEpisode recorded.
--- NOTE | 2025-01-06 08:34 | S_PTH ---
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
== END 2025-01-06 08:01 | disposition home or self-care (01) ==
PROVIDERS: PCP Nurse Practitioner Family; Visit Provider Nurse Practitioner Family
DX: R92.8 Other abnormal and inconclusive findings on diagnostic imaging of breast (principal); N60.21 Fibroadenosis of right breast
CPT/HCPCS: 19083; 77065; 88305; 88342; A4648